=== PATIENT | male | born 1950 | race Caucasian/White ===

== ENCOUNTER 2025-01-17 07:28 | Inpatient (IN) | payer MEDICAID, SELFPAY ==
[2025-01-17] VITALS (8 sets, daily range): BP systolic 132–178; BP diastolic 73–89; PULSE 61–68; RESP 16–20; TEMP 36.2–37.1; O2SAT 95–100; BMI 28.9
--- NOTE | 2025-01-17 07:50 | XR_ITS ---
Examination: PA lateral chest 2 views TECHNIQUE: Upright PA lateral chest 2 views Date and time: January 17, 2025, 0756 hours Comparison January 09, 2022 INDICATIONS: Chest pain and arm swelling today. FINDINGS: Moderate CHF Mild enlargement cardiac contour. Prominent vascular congestion with perihilar basilar edema Consider superimposed pneumonia at the lung bases Moderate hyperexpansion Cardiac leads satisfactory position IMPRESSION: Moderate CHF Consider superimposed pneumonia at the lung bases
--- NOTE | 2025-01-17 07:50 | EKG_ITS ---
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
--- NOTE | 2025-01-17 07:51 | PD.EDRME ---
Rapid Medical Screening Exam RME Arrival date/time: 01/17/25 07:28 74-year-old male with a history of hypertension, hyperlipidemia, type 2 diabetes presents to the emergency room with a chief complaint of increased shortness of breath, fatigue, bilateral lower extremity swelling x 1 week I have greeted and performed a focused initial assessment of this patient. A comprehensive ED assessment and evaluation of the patient, analysis of all test results, and completion of the medical decision making process will be conducted by additional ED providers. Chief Complaint: Shortness of Breath/Dyspnea Vital signs: Vital Signs Temperature 98.8 F 01/17/25 07:40 Pulse Rate 67 01/17/25 07:40 Respiratory Rate 18 01/17/25 07:40 Blood Pressure 178/83 H 01/17/25 07:40 Pulse Oximetry (%) 97 01/17/25 07:40 Oxygen Delivery Method Room Air 01/17/25 07:40 Vital signs reviewed by provider: Yes
[2025-01-17 08:21] LABS: Basophils # (Auto) 0.0 Thou/mm3 (0.0-0.2); Basophils % (Auto) 0 % (0-2.5); Eosinophils # (Auto) 0.1 Thou/mm3 (0.0-0.5); Eosinophils % (Auto) 1 % (0-10); Hematocrit 34.2 % (41.0-53.0); Hemoglobin 11.3 g/dL (13.5-16.0); Immature Granulocytes Auto 0.02 Thou/mm3 (0.00-0.00); Lymphocytes # (Auto) 3.4 Thou/mm3 (1.0-4.8); Lymphocytes % (Auto) 30 % (10-50); Mean Corpuscular HGB Conc 33.0 g/dl (31.0-37.0); Mean Corpuscular Hemoglobin 31.7 pg (25.0-35.0); Mean Corpuscular Volume 96 fL (80-100); Monocytes # (Auto) 0.8 Thou/mm3 (0.0-0.8); Monocytes % (Auto) 7 % (0-12); Neutrophils # (Auto) 7.1 Thou/mm3 (1.8-7.7); Neutrophils % (Auto) 62 % (37-80); Nucleated Red Blood Cell # 0.00 Thou/mm3 (0.00-0.00); Nucleated Red Blood Cell % 0 /100 WBC (0); Platelet Count 280 Thou/mm3 (140-440); RDW Standard Deviation 56.5 fL (35.1-43.9); Red Blood Count 3.56 Miln/mm3 (4.50-5.90); White Blood Count 11.4 Thou/mm3 (3.8-10.6)
[2025-01-17 08:37] LABS: Alanine Aminotransferase 46 U/L (10-49); Albumin, Serum 3.9 gm/dL (3.4-4.8); Albumin/Globulin Ratio 1.6 (1.2-2.2); Alkaline Phosphatase 102 U/L (46-116); Anion Gap 6 (7-16); Aspartate Amino Transferase 57 U/L (0-34); BUN/Creatinine Ratio 8 Ratio (12-20); Bilirubin,Total 0.3 mg/dL (0.3-1.2); Blood Urea Nitrogen 6 mg/dL (9-23); Calcium 8.4 mg/dL (8.3-10.6); Calcium (Corrected) 8.5 mg/dL (8.5-10.1); Carbon Dioxide 24.8 mMol/L (20.0-31.0); Chloride 112 mMol/L (98-107); Creatinine (Component) 0.8 mg/dL (0.6-1.3); Estimated Creatinine Clearance 69.3 mL/min (>60); Globulin 2.4 gm/dL (2.3-3.5); Glucose 62 mg/dL (74-106); Osmolality,Calculated 280 (275-295); Potassium 4.3 mMol/L (3.4-5.1); Sodium 143 mMol/L (136-145); Total Protein 6.3 gm/dL (5.7-8.2); Troponin I 0.024 ng/mL (0.0-0.045); eGFR > 60 See Note
[2025-01-17 08:45] LABS: Bilirubin,Urine Negative (Negative); Blood,Urine Negative (Negative); Clarity,Urine Clear (Clear/Hazy); Collection Type, Urine Clean Catch; Color,Urine Colorless (Lt Yel-Yel); Glucose, Urine Negative (Negative); Ketones,Urine Negative (Negative); Leukocyte Esterase,Urine Negative (Negative); Nitrite,Urine Negative (Negative); PH,Urine 6.0 (5.0-7.0); Protein,Urine Negative (Neg - Trace); RBC,Urine 2 /hpf (0-3); Specific Gravity,Urine 1.012 (1.001-1.035); Squamous Epithelial Cell,Urine 0 /hpf (0-5); Urobilinogen,Urine Negative mg/dL (0.0-1.0); WBC,Urine 1 /hpf (0-5)
[2025-01-17 08:50] LABS: B-Type Natriuretic Peptide 760 pg/mL (0-100)
[2025-01-17 10:18] LABS: INR 0.9 (0.9-1.3); Partial Thromboplastin Time 25.8 Seconds (22.0-36.0); Prothrombin Time 10.2 Seconds (9.0-12.2)
--- NOTE | 2025-01-17 13:35 | XR_ITS ---
Examination: Duplex scan of the upper extremity, unilateral left Date and time of exam: January 17, 2025 1445 hours INDICATIONS: Onset left arm swelling today Technique: Duplex scan of the extremity veins using B-mode/grayscale imaging and Doppler spectral analysis and color flow Attention is directed to internal echogenicity, compression and augmentation involving these veins, color flow assessment, spectral analysis Findings: Major deep venous structures in the extremity demonstrate normal course and caliber. There is no evidence of deep vein thrombosis. Normal color flow and spectral analysis Impression: Negative for DVT..
[2025-01-17] MEDS: ALBUTEROL/IPRATROPIUM (Duoneb) RT SOL 3 ML NEBU INH (13:47)
--- NOTE | 2025-01-17 15:30 | PD.EDSOB ---
ED SOB =RME/HPI General Chief Complaint: Shortness of Breath/Dyspnea Stated Complaint: SOB, SWELLING IN EXTREMITIES, FEELS AGITATED Time Seen by Provider: 01/17/25 18:13 Arrival date/time: 01/17/25 07:28 RME / HPI RME / HPI Narrative: 01/17/25 07:28 74-year-old male with a history of hypertension, hyperlipidemia, type 2 diabetes presents to the emergency room with a chief complaint of increased shortness of breath, fatigue, bilateral lower extremity swelling x 1 week I have greeted and performed a focused initial assessment of this patient. A comprehensive ED assessment and evaluation of the patient, analysis of all test results, and completion of the medical decision making process will be conducted by additional ED providers. DR. SCHMID MAIN ED EVALUATION 74 year old male with history of pacemaker placement, hypertension, diabetes, and hyperlipidemia presents to the ED with progressively worsening shortness of breath over the past month, with exacerbation over the past week. Worse with exertion. Associated symptoms include productive cough with white phlegm and bilateral lower extremity swelling. Denies chest pain, fever, chills, night sweats, nausea, vomiting, diarrhea, or constipation. Denies dysuria, urinary frequency, or urgency. He is not currently taking any diuretics. Related Data Home Medications ?Medication ?Instructions ?Recorded ?Confirmed empagliflozin 25 mg tablet 25 mg PO QDAY 10/13/21 01/18/25 (Jardiance) sitagliptin phosphate 50 1 tab PO BID 10/13/21 01/18/25 mg-metformin 1,000 mg tablet (Janumet) Previous Rx's ?Medication ?Instructions ?Recorded atorvastatin 20 mg tablet 40 mg (2 x 20 mg) PO HS 30 days 01/19/25 #60 tabs blood-glucose sensor (FreeStyle #3 ea 01/19/25 Camila 3 Plus Sensor device) blood-glucose,data warehouse architect,cont #2 ea 01/19/25 (FreeStyle Camila 3 [place]) furosemide 20 mg tablet (Lasix) 20 mg PO QAM Heart Failure 30 01/19/25 days #30 tabs losartan 25 mg tablet 25 mg PO QDAY blood pressure 30 01/19/25 days #30 tabs Allergies Allergy/AdvReac Type Severity Reaction Status Date / Time No Known Allergies Allergy Verified 01/17/25 07:35 Review of Systems Review of Systems Systems Reviewed: All systems reviewed, normal except as documented Past Medical History Past Medical History CARDIAC: Positive Hypercholesterolemia and Hypertension ENDOCRINE: Positive Diabetes Mellitus Type 2 Surgical History SURGICAL: Negative Cardiac Surgery, Endocrine Surgery, Ear Surgery, Abdominal Surgery, Nephrectomy, Joint Replacement, Neurologic Surgery, Mastectomy or Vasectomy Social History SMOKING STATUS: Never smoker SUBSTANCE USE: does not use ED Exam Narrative Physical exam: GENERAL APPEARANCE: alert and oriented x 4, well-developed, well-nourished, no acute distress HEENT: Normocephalic, atraumatic; pupils equal, round, reactive to light; EOMI; mucous membranes pink, moist; oropharynx clear NECK: Supple LUNGS: Wheezes, no rales, no rhonchi HEART: Regular rate, regular rhythm; normal S1, S2; no murmurs ABDOMEN: non distended; normal BS; soft, no tenderness, no guarding, no rebound; no masses, no organomegaly, no hernia BACK: no CVA tenderness EXTREMITIES: atraumatic; BLE edema NEUROLOGIC: awake; alert and oriented x4; cranial nerves II-XII grossly intact; no focal sensory or motor deficits PSYCHIATRIC: appropriate mood and affect SKIN: warm, dry, normal color; no rashes Course Quality Measures none Orders Category Date Time Status COVID-19 Screening Questionnaire NOW Care 01/17/25 19:44 Completed Depositing Machine Operator Q4H START 00 Care 01/17/25 18:49 Completed Decision to Admit X1 Care 01/17/25 19:43 Completed EKG (ED ONLY) *Do not use* NOW Care 01/17/25 07:50 Completed Consult to Cardiology Stat Cons 01/17/25 20:00 Ordered EKG (ED Only) Stat Exams 01/17/25 07:50 Draft US venous doppler UE LT Stat Exams 01/17/25 13:35 Completed XR chest 2V Stat Exams 01/17/25 07:50 Completed B-Type Natriuretic Peptide Stat Lab 01/17/25 08:09 Completed CBC Stat Lab 01/17/25 08:09 Completed Comprehensive Metabolic Panel Stat Lab 01/17/25 08:09 Completed Partial Thromboplastin Time Stat Lab 01/17/25 08:09 Completed Prothrombin Time with INR Stat Lab 01/17/25 08:09 Completed Troponin I Stat Lab 01/17/25 08:09 Completed Urinalysis Stat Lab 01/17/25 08:20 Completed Albuterol/Ipratr Rt Lola [Duoneb Rt Lola] Med 01/17/25 13:35 Discontinued 3 ml INH X1 ONE Dextrose 50% Syr [D50w Syringe Abboject] Med 01/17/25 18:22 Discontinued 50 ml .ROUTE .STK-MED ONE Dextrose 50% Syr [D50w Syringe Abboject] Med 01/17/25 18:33 Discontinued 50 ml IVP X1 ONE Furosemide [Lasix] Med 01/17/25 13:35 Discontinued 40 mg PO X1 ONE Vital Signs Vital signs: Vital Signs Temperature 98.8 F 01/17/25 07:40 Pulse Rate 67 01/17/25 07:40 Respiratory Rate 18 01/17/25 07:40 Blood Pressure 178/83 H 01/17/25 07:40 Pulse Oximetry (%) 97 01/17/25 07:40 Oxygen Delivery Method Room Air 01/17/25 07:40 Pulse ox is 97% on room air which is adequate. Shortness of Breath / Dyspnea MDM Narrative MDM Narrative:: Yael Jansen am scribing for and in the presence of Dr. Schmid. 1800: Patient signed out to Dr. Lyon, pending sales support assistant Dr. Valdez to evaluate in the ED. Patient data External records reviewed:: [facility] previous records (I reviewed ED visit on 01/09/2022 ) Clinical information provided by:: patient Social determinants that could affect healthcare access:: none Patient has the following chronic illnesses:: HTN, DM, HLD, s/p pacemaker placement How is presenting disease/condition affected by chronic disease/condition?: exacerbated by Evaluation data The following diagnostics were reviewed and interpreted by me:: lab results, radiology exam(s) and EKG tracing(s) (Paced rhythm, rate 64, no STEMI. ) Lab and/or radiology exams considered but not ordered:: None Interpretation Summary: Ordering Physician: Leonel Howe Date of Service: 01/17/25 Procedure(s): XR chest 2V Accession Number(s): [id number] cc: Leonel Howe; Taylor Neil MD; Ramez Back MD~ Examination: PA lateral chest 2 views TECHNIQUE: Upright PA lateral chest 2 views Date and time: January 17, 2025, 0756 hours Comparison January 09, 2022 INDICATIONS: Chest pain and arm swelling today. FINDINGS: Moderate CHF Mild enlargement cardiac contour. Prominent vascular congestion with perihilar basilar edema Consider superimposed pneumonia at the lung bases Moderate hyperexpansion Cardiac leads satisfactory position IMPRESSION: Moderate CHF Consider superimposed pneumonia at the lung bases Dictated By: Ramez Back MD Signed By: <Electronically signed by Ramez Back MD in OV> 01/17/25 0927 Ordering Physician: Dionne Schmid MD Date of Service: 01/17/25 Procedure(s): US venous doppler UE Accession Number(s): [id number] cc: Taylor Neil MD; Ramez Back MD; Dionne Schmid MD~ Examination: Duplex scan of the upper extremity, unilateral left Date and time of exam: January 17, 2025 1445 hours INDICATIONS: Onset left arm swelling today Technique: Duplex scan of the extremity veins using B-mode/grayscale imaging and Doppler spectral analysis and color flow Attention is directed to internal echogenicity, compression and augmentation involving these veins, color flow assessment, spectral analysis Findings: Major deep venous structures in the extremity demonstrate normal course and caliber. There is no evidence of deep vein thrombosis. Normal color flow and spectral analysis Impression: Negative for DVT.. Dictated By: Ramez Back MD Signed By: <Electronically signed by Ramez Back MD in OV> 01/17/25 1521 Medications / Prescriptions Medications or Prescriptions considered but not ordered:: None Medication administrations:: Medication Administration History Discontinued Medications Acetaminophen (Acetaminophen 325 Mg Tablet) 650 mg PO Q6H PRN PRN Reason: Pain 1-3 and/or Fever >100.1 Stop: 02/16/25 20:54 Last Admin: 01/18/25 21:51 Dose: 650 mg Documented By: NADYA Albuterol/Ipratropium (Albuterol/Ipratropium (Duoneb) Rt Lola 3 Ml Nebu) 3 ml INH X1 ONE Stop: 01/17/25 13:36 Last Admin: 01/17/25 13:47 Dose: 3 ml Documented By: LUIS Atorvastatin Calcium (Atorvastatin Calcium 20 Mg Tablet) 40 mg PO HS [facility] Stop: 02/17/25 20:59 Last Admin: 01/18/25 21:51 Dose: 40 mg Documented By: NADYA Dextrose (Dextrose 50%-Water Inj 50 Ml Syringe) Confirm Administered Dose 50 ml .ROUTE .STK-MED ONE Stop: 01/17/25 18:23 Last Admin: 01/17/25 18:34 Dose: Not Given Documented By: EVA Non-Admin Reason: Duplicate Medication on eMAR Dextrose (Dextrose 50%-Water Inj 50 Ml Syringe) 50 ml IVP X1 ONE Stop: 01/17/25 18:34 Last Admin: 01/17/25 18:30 Dose: 50 ml Documented By: EVA Dextrose (Dextrose 50%-Water Inj 50 Ml Syringe) 25 ml IV Q15MIN PRN PRN Reason: BG 50-70 responsive npo pt Stop: 02/16/25 23:19 Dextrose (Dextrose 50%-Water Inj 50 Ml Syringe) 50 ml IV Q15MIN PRN PRN Reason: BG <50 OR BG <70 & pt unresponsive Stop: 02/16/25 23:19 Furosemide (Furosemide 40 Mg Tablet) 40 mg PO X1 ONE Stop: 01/17/25 13:36 Last Admin: 01/17/25 13:47 Dose: 40 mg Documented By: KARENA Furosemide (Furosemide Inj 10 Mg/Ml 4ml Vial) 40 mg IVP BIDD TINO Stop: 02/17/25 05:59 Last Admin: 01/18/25 05:26 Dose: 40 mg Documented By: NADYA Furosemide (Furosemide Inj 10 Mg/Ml 4ml Vial) 40 mg IVP QDAY TINO Stop: 02/18/25 08:59 Last Admin: 01/19/25 08:49 Dose: 40 mg Documented By: ZOILA Glucagon (Glucagon Inj 1 Mg Vial) 1 mg IM Q15MIN PRN PRN Reason: BG <70, and no IV access Heparin Sodium (Porcine) (Heparin Sod Inj 5000 Unit/Ml Vial) 5,000 unit SC Q12HR TINO Stop: 01/31/25 20:59 Last Admin: 01/19/25 08:48 Dose: 5,000 unit Documented By: ZOILA Co-signed By: KANU Admin: 01/18/25 21:51 Dose: 5,000 unit Documented By: NADYA Co-signed By: SABINO Admin: 01/18/25 09:41 Dose: 5,000 unit Documented By: ZOILA Co-signed By: KF Admin: 01/17/25 21:26 Dose: 5,000 unit Documented By: KARENA Co-signed By: BRIAN Ceftriaxone Sodium/Dextrose (Rocephin/D5w 1gm Iv Premix) 1 gm in 50 mls @ 100 mls/hr IV QDAY TINO Stop: 01/24/25 23:26 Last Admin: 01/19/25 08:48 Dose: 100 mls/hr Documented By: Infusion: 01/18/25 10:09 Dose: Infused Documented By: Admin: 01/18/25 09:39 Dose: 100 mls/hr Documented By: Infusion: 01/18/25 00:49 Dose: Infused Documented By: Admin: 01/18/25 00:19 Dose: 100 mls/hr Documented By: NADYA Azithromycin 500 mg/ Sodium (Chloride) 250 mls @ 250 mls/hr IV QDAY TINO Stop: 01/25/25 10:20 Last Admin: 01/19/25 09:24 Dose: 250 mls/hr Documented By: Infusion: 01/18/25 12:03 Dose: Infused Documented By: Admin: 01/18/25 11:03 Dose: 250 mls/hr Documented By: ZOILA Insulin Glargine (Insulin Glargine (Lantus) 5 Unit/0.05 Ml (Per 5 Units)) 5 unit SC HS TINO Stop: 02/17/25 20:59 Insulin Glargine (Insulin Glargine (Lantus) 5 Unit/0.05 Ml (Per 5 Units)) 5 unit SC HS TINO Stop: 02/17/25 20:59 Last Admin: 01/18/25 21:53 Dose: 5 unit Documented By: NADYA Co-signed By: SABINO Insulin Human Lispro (Insulin Lispro (Admelog) 1 Unit/0.01 Ml Unit) 0 unit SC ACHS TINO; Protocol Stop: 02/17/25 07:29 Last Admin: 01/19/25 12:00 Dose: 1 unit Documented By: ZOILA Co-signed By: DL Admin: 01/19/25 07:34 Dose: Not Given Documented By: ZOILA Non-Admin Reason: Per Protocol Admin: 01/18/25 21:52 Dose: Not Given Documented By: SS Non-Admin Reason: blood glucose 129 Admin: 01/18/25 17:35 Dose: Not Given Documented By: ZOILA Non-Admin Reason: Per Protocol Admin: 01/18/25 13:27 Dose: Not Given Documented By: ZOILA Non-Admin Reason: Per Protocol Admin: 01/18/25 08:13 Dose: 2 unit Documented By: OZILA Co-signed By: MGSona Ondansetron HCl (Ondansetron Inj 2 Mg/Ml Inj 2 Ml) 4 mg IVP Q6H PRN; Protocol PRN Reason: NAUSEA OR VOMITING Stop: 02/16/25 20:54 Polyethylene Glycol (Polyethylene Glycol 17 Gm Packet) 17 gm PO QDAY TINO Stop: 02/18/25 08:59 Last Admin: 01/19/25 08:49 Dose: 17 gm Documented By: ZOILA Potassium Chloride (Potassium Chloride 20 Meq Tabcr) 20 meq PO X1 ONE Stop: 01/18/25 18:01 Last Admin: 01/18/25 17:36 Dose: 20 meq Documented By: ZOILA Sennosides (Senna Tablet) 1 tab PO QDAY PRN; Protocol PRN Reason: constipation Stop: 02/16/25 20:54 See above Consultations Consultation(s) initiated? (list below): Yes Consultation #1 (Physician, Specialty, Details): I spoke with sales support assistant Dr. Valdez. Discussed patients PMHx, HPI, ED course, exam findings, labs, and radiology results. States he will evaluate the patient in the ED. Time: 17:25 Diagnosis Shortness of Breath Differential Diagnosis: acute exacerbation of chronic obstructive airways disease, congestive heart failure, community acquired pneumonia and other (DVT ) Most likely diagnosis given after review of the tests above:: New onset CHF Admission Indicated Admission indicated?: not indicated Explain why admission is indicated or not indicated:: Signed out to Dr. Lyon pending final disposition. Admission Request Was there a request for admission?: No Disposition Plan Disposition Plan: other (specify) (signed out to Dr. Lyon pending final disposition. ) Discharge Plan Plan Patient Disposition: Admit Acute Care w/in Hospital Discharge Disposition comment: TELE Patient condition on transfer: Stable Problem List Clinical Impression: CHF exacerbation
--- NOTE | 2025-01-17 18:20 | PC.NURSE ---
Patient c/o feeling dizzy, states he hasn't eaten all day, VSS. FSBS 37 repeat 38, patient denies n/vomiting, alert and oriented x 3, at bedside, patient provided with 240ml orange juice and followed critical low blood sugar lever, Dr. Machado made aware and states do not feed patient meal at this time, do to patient awaiting consult with cardiologists
[2025-01-17] MEDS: DEXTROSE 50%-WATER INJ 50 ML SYRINGE IVP (18:30)
--- NOTE | 2025-01-17 19:40 | EDNOTE_ITS ---
Emergency Room Addendum <Taylor Lyon MD - Last Filed: 01/17/25 19:42> Addendum Narrative: Signed out from Dr. Bindu heard at signout. Pending evaluation by DR Brush for final disposition. 1941: Dr. Brush at the bedside. Recommends admission, IV diuresis echo tomorrow, Lasix 40 mg IV twice daily, and ischemic workup <Adrián Cárdenas - Last Filed: 01/17/25 21:25> Addendum Narrative: 1800: Care assumed from Dr. Schmid (emergency physician). Past medical, surgical, social and family history reviewed. Vitals and home medications reviewed. Results and treatment plan discussed. I will assume the care of the patient at this time and will follow the patient, pending evaluation by Dr. Brush for final disposition. 1941: Dr. Brush, bit gatherer wood preparation supervisor, was made aware of the patient?s history of present illness, past medical history, laboratory results, and imaging findings. Dr. Brush evaluated the patient in-person at bedside and reviewed the case in detail. After consultation, Dr. Brush discussed the treatment plan. He recommends: Admission, IV diuresis echo tomorrow, Lasix 40 mg IV twice daily, and ischemic workup. MD Attestation <Adrián Cárdenas - Last Filed: 01/17/25 21:25> Attestation Scribe Attestation: I, Alma Cárdenas, am scribing for and in the presence of Dr. Lyon. Provider Notation: Although this document has been carefully reviewed, there may still be some phonetic and other typographical errors. These errors are purely grammatical due to imperfections in the software program and should not be construed in any way to compromise the substance of the patient's medical care during this visit.
--- NOTE | 2025-01-17 20:11 | PD.RESHP ---
Documentation for date of: 01/17/25 HPI History of Present Illness Chief complaint: Shortness of breath, dyspnea on exertion History of present illness: 74-year-old male with past medical history of hypertension, hyperlipidemia, lel-hbdqioi-iddbaqskx type 2 diabetes, pacemaker for bradycardia followed by Dr. Valdez presenting to the ED on 01/17 with increased episode of shortness of breath and dyspnea on exertion. Patient states that after showering last night he started noticing that he was retaining fluid in his hands and lower extremities. Patient follows with Dr. Valdez as stated above and has his pacemaker card on his person. Patient denies having any fever/chills, palpitations, dizziness, nausea, vomiting, diarrhea. Patient's bedside also provided some history collaborating his story. Medical history: As stated above Surgical history: Pacemaker placement Allergies: NKDA Medications: Pending official med rec Family history: Noncontributory Social history: Patient lives with , denies having any alcohol, tobacco or illicit drug use ROS: All 12 systems assessed and the patient denies unless otherwise stated in HPI In the ED, patient presented hypertensive 178/83, heart rate is 67, remaining vitals largely unremarkable, fingerstick Leukos of 161, pertinent lab findings include WBC 11.4, hemoglobin 11.3 with MCV of 96, BUN 6, creatinine 0.8, AST mildly elevated 57, ALT also at 46, troponin 0.024 and BNP of 760. Urinalysis was negative for any signs of infection. Chest x-ray showed mild to moderate CHF with enlarged cardiac contour and likely superimposed pneumonia in the lung bases, EKG showed atrial pacemaker, ventricular pacemaker. Venous Doppler studies were ordered which showed no signs of DVT. Patient will be admitted for CHF exacerbation and will be started on IV diuretics, cardiology is consulted for recommendations. Exam Vital Signs Temp Pulse Resp BP Pulse Ox O2 Del Method 97.4 F 64 16 148/73 H 100 Room Air 01/17/25 16:18 01/17/25 18:50 01/17/25 18:20 01/17/25 18:20 01/17/25 18:20 01/17/25 18:20 Narrative Exam Physical Exam: GENERAL: Awake, answering questions appropriately in Ukrainian, appears stated age HEENT: NC/AT. Moist mucosa. PERRLA/EOMI. CARDIO: Paced rhythm, distant heart sounds, no JVD appreciated PULM: Bilateral wheezing noted, no crackles/rales or rhonchi. GI: Abdomen soft, NT/ND, +BS. SKIN/MSK/EXT: Nonpitting edema noted on bilateral upper and lower extremities up to feet. No wounds/discoloration/rashes/amputations noted. +Pedal pulses present B/L. NEURO: Oriented x3, Moves extremities x4, no focal neurologic deficits noted Results: Labs 01/17/25 08:09 01/17/25 08:09 Labs: Short CBC 01/17/25 Range/Units 08:09 WBC 11.4 H (3.8-10.6) Thou/mm3 Hgb 11.3 L (13.5-16.0) g/dL Hct 34.2 L (41.0-53.0) % Plt Count 280 (140-440) Thou/mm3 BMP 01/17/25 08:09 Sodium 143 Potassium 4.3 Chloride 112 H Carbon Dioxide 24.8 BUN 6 L Creatinine 0.8 Glucose 62 L Calcium 8.4 Cardiac Enzymes 01/17/25 Range/Units 08:09 Troponin I 0.024 (0.0-0.045) ng/mL Liver Function 01/17/25 Range/Units 08:09 Total Bilirubin 0.3 (0.3-1.2) mg/dL AST 57 H (0-34) U/L ALT 46 (10-49) U/L Alkaline Phosphatase 102 (46-116) U/L Albumin 3.9 (3.4-4.8) gm/dL Urine 01/17/25 Range/Units 08:20 Urine Color Colorless A (Lt Yel-Yel) Urine Clarity Clear (Clear/Hazy) Urine pH 6.0 (5.0-7.0) Ur Specific [place] 1.012 (1.001-1.035) Urine Protein Negative (Neg - Trace) Urine Glucose (UA) Negative (Negative) Quality Measures Quality Measures none Advance care planning discussed with:: patient Medications Home Medications and Allergies Home Medications ?Medication ?Instructions ?Recorded ?Confirmed ?Type atorvastatin 20 mg tablet 20 mg PO QDAY 09/08/18 11/28/21 History amlodipine 5 mg tablet 5 mg PO QAM 10/13/21 11/28/21 History empagliflozin 25 mg tablet 25 mg PO QDAY 10/13/21 11/28/21 History (Jardiance) losartan 25 mg tablet 25 mg PO QDAY 10/13/21 11/28/21 History sitagliptin phosphate 50 1 tab PO BID 10/13/21 11/28/21 History mg-metformin 1,000 mg tablet (Janumet) Allergies Allergy/AdvReac Type Severity Reaction Status Date / Time No Known Allergies Allergy Verified 01/17/25 07:35 Visit Medications Discontinued Medications Albuterol/Ipratropium (Albuterol/Ipratropium (Duoneb) Rt Lola 3 Ml Nebu) 3 ml INH X1 ONE Stop: 01/17/25 13:36 Last Admin: 01/17/25 13:47 Dose: 3 ml Dextrose (Dextrose 50%-Water Inj 50 Ml Syringe) 50 ml IVP X1 ONE Stop: 01/17/25 18:34 Last Admin: 01/17/25 18:30 Dose: 50 ml Furosemide (Furosemide 40 Mg Tablet) 40 mg PO X1 ONE Stop: 01/17/25 13:36 Last Admin: 01/17/25 13:47 Dose: 40 mg Assessment & Plan Plan 74-year-old male with past medical history of hypertension, hyperlipidemia, miz-vpmycva-ixwteggqz type 2 diabetes, pacemaker for bradycardia followed by Dr. Valdez presenting to the ED on 01/17 with increased episode of shortness of breath and dyspnea on exertion will be admitted for CHF exacerbation and will be started on IV diuretics, cardiology is consulted for recommendations. #CHF, [place] Heart [employer] stage IV #Pacemaker placement Patient presenting with symptomatic dyspnea on exertion, shortness of breath which was accompanied by upper and lower extremity swelling In the ED, patient presented initially mildly hypertensive requiring no supplemental oxygen saturating well Pertinent lab findings included BNP of 760 but troponin was within normal limits Patient follows Dr. Valdez outpatient for pacemaker placement and cardiology follow-up In the ED, patient was given p.o. furosemide 40 x 1 along with a breathing treatment for the wheezing Plan: IV Lasix 40 mg twice daily Cardiology consulted, appreciate recommendations Strict I's and O's Daily weight Echo ordered Possible further workup with left heart catheterization pending cardiology recommendations #Superimposed community-acquired pneumonia Chest x-ray showed mild to moderate CHF with enlarged cardiac contour and likely superimposed pneumonia in the lung bases, EKG showed atrial pacemaker, ventricular pacemaker. Venous Doppler studies were ordered which showed no signs of DVT. Plan: Started IV ceftriaxone 1 g daily Monitor with morning labs Patient does not appear septic at this time, continue monitor for any acute changes #Hypertension #Lqq-fcvkrcq-vncwykuzp type 2 diabetes #Hyperlipidemia Chronic medical conditions, pending official med rec will restart home medications Plan: Sliding scale insulin ACHS bedside glucose Will restart patient's antihypertensive when appropriate #Elevated liver enzymes Differentials include NAFLD congestion secondary CHF versus less likely to be alcohol associated hepatitis, viral hepatitis Plan: Continue monitor with morning labs Health Maintenance: Lines: PIV Diet: Cardiac Bowel: Senna GI prophylaxis: Not needed DVT prophylaxis: Heparin subcu Dispo: IV diuretics per CHF exacerbation, cardiac workup Code: Full Patient seen and examined with attending Dr. Florencia Lopez, DO PGY-2 Internal Medicine - GME Attending Provider Attestation/Addendum 74-year-old male patient with hypertension, hyperlipidemia, diabetes mellitus presents with shortness of breath. The patient was found to have decompensated CHF. Chest x-ray showed pneumonia and pulmonary congestion. The patient has elevated liver function tests. The patient was started on IV diuretic treatment and IV Rocephin. He will be followed by his tip fixer Dr. Valdez. I discussed with and supervised the resident physician who took care of this patient. I agree with the assessment and plan as above.
[2025-01-17] MEDS: HEPARIN SOD INJ 5000 UNIT/ML VIAL SC (21:26)
[2025-01-18] VITALS (8 sets, daily range): BP systolic 107–165; BP diastolic 71–88; PULSE 62–82; RESP 12–19; TEMP 36.3–36.8; O2SAT 98–99; BMI 28.9; BMI 29.0
[2025-01-18] MEDS: cefTRIAXone/D5w 1gm IV premix 1 GM/50 ML BAG IV ×2 (00:19→09:39)
[2025-01-18] MEDS: FUROSEMIDE INJ 10 MG/ML 4ML VIAL 40 MG IVP (05:26)
[2025-01-18 05:57] LABS: Basophils # (Auto) 0.0 Thou/mm3 (0.0-0.2); Basophils % (Auto) 0 % (0-2.5); Eosinophils # (Auto) 0.1 Thou/mm3 (0.0-0.5); Eosinophils % (Auto) 1 % (0-10); Hematocrit 37.6 % (41.0-53.0); Hemoglobin 12.3 g/dL (13.5-16.0); Immature Granulocytes Auto 0.01 Thou/mm3 (0.00-0.00); Lymphocytes # (Auto) 2.0 Thou/mm3 (1.0-4.8); Lymphocytes % (Auto) 23 % (10-50); Mean Corpuscular HGB Conc 32.7 g/dl (31.0-37.0); Mean Corpuscular Hemoglobin 31.4 pg (25.0-35.0); Mean Corpuscular Volume 96 fL (80-100); Monocytes # (Auto) 0.7 Thou/mm3 (0.0-0.8); Monocytes % (Auto) 7 % (0-12); Neutrophils # (Auto) 6.1 Thou/mm3 (1.8-7.7); Neutrophils % (Auto) 69 % (37-80); Nucleated Red Blood Cell # 0.00 Thou/mm3 (0.00-0.00); Nucleated Red Blood Cell % 0 /100 WBC (0); Platelet Count 173 Thou/mm3 (140-440); RDW Standard Deviation 54.0 fL (35.1-43.9); Red Blood Count 3.92 Miln/mm3 (4.50-5.90); White Blood Count 8.9 Thou/mm3 (3.8-10.6)
[2025-01-18 06:14] LABS: Glucose Estimated Average 318 mg/dL (80-131); Hemoglobin A1C 12.7 % Hgb (4.8-6.0)
[2025-01-18 06:23] LABS: Alanine Aminotransferase 40 U/L (10-49); Albumin, Serum 3.7 gm/dL (3.4-4.8); Albumin/Globulin Ratio 1.5 (1.2-2.2); Alkaline Phosphatase 106 U/L (46-116); Anion Gap 5 (7-16); Aspartate Amino Transferase 40 U/L (0-34); BUN/Creatinine Ratio 7 Ratio (12-20); Bilirubin,Total 0.5 mg/dL (0.3-1.2); Blood Urea Nitrogen < 5 mg/dL (9-23); Calcium 8.7 mg/dL (8.3-10.6); Calcium (Corrected) 8.9 mg/dL (8.5-10.1); Carbon Dioxide 29.6 mMol/L (20.0-31.0); Cardiac Risk Estimate 2.3 RATIO (4.0-6.7); Chloride 106 mMol/L (98-107); Cholesterol 158 mg/dL (132-200); Creatinine (Component) 0.7 mg/dL (0.6-1.3); Estimated Creatinine Clearance 79.2 mL/min (>60); Globulin 2.4 gm/dL (2.3-3.5); Glucose 52 mg/dL (74-106); HDL Cholesterol 70 mg/dL (40-60); LDL Cholesterol,Calculated 73 mg/dL (0-130); Magnesium 1.7 mg/dL (1.6-2.6); Osmolality,Calculated 275 (275-295); Phosphorous 4.6 mg/dL (2.4-5.1); Potassium 3.7 mMol/L (3.4-5.1); Sodium 141 mMol/L (136-145); Thyroid Stimulating Hormone 5.37 uIU/mL (0.55-4.78); Total Protein 6.1 gm/dL (5.7-8.2); Triglycerides 75 mg/dL (30-150); eGFR > 60 See Note
[2025-01-18] MEDS: INSULIN LISPRO (AdmeLOG) 1 UNIT/0.01 ML UNIT SC (08:13)
[2025-01-18 08:20] LABS: Free T4 (Free Thyroxine) 1.29 ng/dL (0.89-1.76)
[2025-01-18] MEDS: HEPARIN SOD INJ 5000 UNIT/ML VIAL SC ×2 (09:41→21:51)
[2025-01-18] MEDS: AZITHROMYCIN INJ 500 MG in SODIUM CHLORIDE 0.9% 250 ML 250 ML 250 MG IV (11:03)
--- NOTE | 2025-01-18 11:48 | PC.SS ---
SS met with patient regarding d/c plan.? Pt is alert/oriented.? Pt was admitted for CHF Exacerbation.? Pt confirmed demographic and contact information is correct on facesheet.? Pt resides with .? Pt ambulates using a 4 wheel with seat, rollator walker.? Pt is ok with all ADLs.? Patient?s pharmacy of choice is [facility] [address] Pt named his dtr, Eboni Morris medical decision maker if he is unable.? Patient?s choice is to return home upon d/c.? Pt does not utilize O2 at home.? Pt is currently on 1 liter of O2.? Pt followed up with PCP in December.? will provide transportation home. D/C plan:? Return home Next of Kin:? ?ursula Parisr, phone# [phone] PCP:? Dr. Taylor Neil from [facility] Address:? Correct on facesheet
--- NOTE | 2025-01-18 12:00 | PD.RESPRO ---
Documentation for date of: 01/18/25 Subjective Subjective Interval history: Patient continued to endorse dyspnea on exertion. Patient continued to deny chest pain or palpitations. Patient stated that he went to the bathroom multiple times throughout the night after being started on diuretics. Decreased Lasix IV 40 mg BID to 40 mg IV QD. Patient produced 4575 mL output of urine. Echo with Dr. Valdez completed. Results pending. Previous echo with Dr. Valdez completed 08/2018 estimated EF between 50-55%. Sodium 2g per day, cardiology rec Exam Vital Signs Temp Pulse Resp BP Pulse Ox O2 Del Method O2 Flow Rate 97.4 F 69 17 124/83 99 Nasal Cannula 1 01/18/25 08:00 01/18/25 08:00 01/18/25 08:00 01/18/25 08:00 01/18/25 08:00 01/18/25 08:00 01/18/25 08:00 Narrative Exam General Appearance: Alert & Oriented X3, well-nourished male who is lying in bed in no acute distress. HEENT: Skull symmetrical and atraumatic. Conjunctivae pin and moist. Pupils equal, round, reactive to light and accommodation (PERRL). External ear without lesion or discharge. Straight, nares patient, mucosa pink, no discharge. No thyroid nodule appreciated. No cervical lymphadenopathy. Cardio: Normal Rate and Rhythm with S1 and S2 heart sounds. No murmurs or extra heart sounds auscultated. Peripheral edema 2+. Lungs: Symmetric with good expansion. Chest and back non-tender. Breath sounds vesicular without crackles, wheezing or rhonchi Abdomen: Non-tender, Non-distended, Normal Reactive Bowel Sounds Neuro: Alert, cooperative, oriented to person, place, and time. Speech clear. CN grossly intact. Upper motor strength 5/5 and Lower motor strength 5/5. Sensation intact. Routine Extremities Exam Extremities: Present pulses intact Objective Labs 01/19/25 04:25 01/19/25 04:25 Labs: Laboratory Results - last 24 hr 01/18/25 05:05 WBC 8.9 RBC 3.92 L Hgb 12.3 L Hct 37.6 L MCV 96 MCH 31.4 MCHC 32.7 RDW Std Deviation 54.0 H Plt Count 173 D Neut % (Auto) 69 Lymph % (Auto) 23 [place] % (Auto) 7 Eos % (Auto) 1 Baso % (Auto) 0 Neut # (Auto) 6.1 Lymph # (Auto) 2.0 [place] # (Auto) 0.7 Eos # (Auto) 0.1 Baso # (Auto) 0.0 Immature Gran # (Auto) 0.01 H Absolute Nucleated RBC 0.00 Immature Gran % 0 Nucleated RBC % 0 Sodium 141 Potassium 3.7 D Chloride 106 Carbon Dioxide 29.6 Anion Gap 5 L BUN < 5 L Creatinine 0.7 Estim Creat Clear Calc 79.2 eGFR > 60 BUN/Creatinine Ratio 7 L Glucose [address] Glu mg/dL 318 H Hemoglobin A1c 12.7 H Calculated Osmolality 275 Calcium 8.7 Corrected Calcium 8.9 Phosphorus 4.6 Magnesium 1.7 Total Bilirubin 0.5 AST 40 H ALT 40 Alkaline Phosphatase 106 Total Protein 6.1 Albumin 3.7 Globulin 2.4 Albumin/Globulin Ratio 1.5 Triglycerides 75 Cholesterol 158 LDL Cholesterol, Calc 73 HDL Cholesterol 70 H Cholesterol/HDL Ratio 2.3 L TSH 5.37 H Free T4 1.29 Quality Measures Quality Measures none Advance care planning discussed with:: patient Assessment & Plan Assessment Current Active Medications: Generic Name Dose Route Start Last Admin Trade Name Freq PRN Reason Stop Dose Admin Acetaminophen 650 mg 01/17/25 20:55 Acetaminophen 325 Mg Tablet PO 02/16/25 20:54 Q6H PRN Pain 1-3 and/or Fever >100.1 Atorvastatin Calcium 40 mg 01/18/25 21:00 Atorvastatin Calcium 20 Mg Tablet PO 02/17/25 20:59 HS TINO Dextrose 25 ml 01/17/25 23:20 Dextrose 50%-Water Inj 50 Ml Syringe IV 02/16/25 23:19 Q15MIN PRN BG 50-70 responsive npo pt Dextrose 50 ml 01/17/25 23:20 Dextrose 50%-Water Inj 50 Ml Syringe IV 02/16/25 23:19 Q15MIN PRN BG <50 OR BG <70 & pt unresponsive Furosemide 40 mg 01/18/25 06:00 01/18/25 05:26 Furosemide Inj 10 Mg/Ml 4ml Vial IVP 02/17/25 05:59 40 mg BIDD TINO Administration Glucagon 1 mg 01/17/25 23:20 Glucagon Inj 1 Mg Vial IM Q15MIN PRN BG <70, and no IV access Heparin Sodium (Porcine) 5,000 unit 01/17/25 21:00 07/03/25 09:41 Heparin Sod Inj 5000 Unit/Ml Vial SC 01/31/25 20:59 5,000 unit Q12HR TINO Administration Ceftriaxone Sodium/Dextrose 1 gm in 50 mls @ 100 mls/hr 01/17/25 23:27 01/18/25 09:39 Rocephin/D5w 1gm Iv Premix IV 01/24/25 23:26 100 mls/hr QDAY TINO Administration Azithromycin 500 mg/ Sodium 250 mls @ 250 mls/hr 01/18/25 10:21 01/18/25 11:03 Chloride IV 01/25/25 10:20 250 mls/hr QDAY TINO Administration Insulin Glargine 5 unit 01/18/25 21:00 Insulin Glargine (Lantus) 5 Unit/0.05 Ml (Per 5 Units) SC 02/17/25 20:59 HS TINO Insulin Human Lispro 0 unit 01/18/25 07:30 01/18/25 08:13 Insulin Lispro (Admelog) 1 Unit/0.01 Ml Unit SC 02/17/25 07:29 2 unit ACHS TINO Administration Protocol Ondansetron HCl 4 mg 01/17/25 20:55 Ondansetron Inj 2 Mg/Ml Inj 2 Ml IVP 02/16/25 20:54 Q6H PRN NAUSEA OR VOMITING Protocol Sennosides 1 tab 01/17/25 20:55 Senna Tablet PO 02/16/25 20:54 QDAY PRN constipation Protocol Plan Plan Patient is a 74 year old male with PMHx of HTN, HLD, poorly controlled type 2 diabetes mellitus, non insulin dependent, and sick sinus s/p pacemaker who originally presented to the ED with edema of bilateral upper and lower extremeties and dyspnea. Patient was admitted overnight for acute CHF exacerbation. #Acute Congestive Heart Failure #history of Preserved Ejection 50 to 55% (2019) #Hyperlipidemia #S/P Pacemaker placement Patient presenting with symptomatic dyspnea, dyspnea upon exertion, and worsening upper and lower extremity swelling. Acute congestive heart failure likely triggered by possible pneumonia as noted on chest x-ray. No previous diagnosis of CHF on file. Consider ischemic vs congetive cardiomyopathy. TSH elevated but Free T 4 within limits. This is a known patient of Dr. Valdez following in outpatient setting. BNP 760 TSAH 5.37, Free T4 1.29 Echo (09/09/2018) Normal cardiac chamber size with normal LV systolic function and LVEF 50 to 55 % Mild tricuspid regurgitation Trace mitral regurgitartion Decreased LV diastolic compliance ASCVD: 37.4% Risk of Cardiovascular event in next 10 years, high intensity statins recommended [facility]: III Plan: Lasix 40 mg IV BID -->Lasix 40 mg IV Qday Pending Echo Continue aggressive diuressis Repeat BNP prior to discharge Ho[place] K> and Magnesium >2 Strict I's and O's ; Daily Fluid restriction 1800mL Sodium 2g day per cardiology work towards guideline GDMT Cardiology Consulted, appreciate recommendations, Dr. Valdez #Superimposed community-acquired pneumonia Chest x-ray showed mild to moderate CHF with enlarged cardiac contour and likely superimposed pneumonia in the lung bases, EKG showed atrial pacemaker, ventricular pacemaker. Venous Doppler studies were ordered which showed no signs of DVT. Plan: Continue IV ceftriaxone 1 g daily (01/18/2025--01/23/2025) Started Azithromycin 500mg IV daily (01/19/2025-01/24/2025) Monitor with morning labs Patient does not appear septic at this time, continue monitor for any acute changes #Hypertension Home medication of amlodipine given soft blood pressure with lasixs. Continue to hold [place] and Amlodipine. Plan -Holding home medication #Gti-vulvxaa-ccjrzsgtv type 2 diabetes Patient presented with hyperglycemic episodes that have also varied to hyperglycemia during this admission. Continue to monitor Fasting glucose. A1c 12.7 and Average 318 Plan -Glargine 5 units, hold if fasting glucose <100. -Sliding Scale -Hypoglycemic #Elevated liver enzymes Differentials include NAFLD congestion secondary CHF versus less likely to be alcohol associated hepatitis, viral hepatitis Plan: Continue monitor with morning labs Health Maintenance: Lines: PIV Diet: Cardiac Bowel: Senna GI prophylaxis: Not needed DVT prophylaxis: Heparin subcu Dispo: IV diuretics per CHF exacerbation, cardiac workup Code: Full Patient discussed your Dr. Davalos, attending and senior resident Dr. Alley Jefferson Medical Student, MS-4 Patient seen and examined with attending physician, Dr. Davalos. Kaela Hager MD PGY-2 Internal Medicine Attending Provider Attestation/Addendum 74-year-old male with multiple comorbidities including hypertension, hyperlipidemia, type 2 diabetes mellitus and sick sinus syndrome status post pacemaker placement who presented to the ER on 01/17/2025 with increased shortness of breath and found to have diffuse crackles concerning for new onset CHF exacerbation. During course of hospitalization, patient started on IV diuretic therapy and IV antibiotic for possible superimposed community-acquired pneumonia. Currently, patient appears to be improving and plan to continue IV diuretic therapy and anticipate discharge in the next 24 hours.I reviewed above note and agree with findings and plans. I have also personally examined the patient with medicine team and went over assessment and plan with medical team including internal controls manager and resident physician.
--- NOTE | 2025-01-18 13:42 | PD.RESPRO ---
Documentation for date of: 01/18/25 Exam Vital Signs Temp Pulse Resp BP Pulse Ox O2 Del Method O2 Flow Rate 97.3 F 73 19 140/72 H 98 Nasal Cannula 1 01/18/25 12:00 01/18/25 12:00 01/18/25 12:00 01/18/25 12:00 01/18/25 12:00 01/18/25 08:00 01/18/25 08:00 Objective Labs 01/18/25 05:05 01/18/25 05:05 Labs: Laboratory Results - last 24 hr 01/18/25 05:05 WBC 8.9 RBC 3.92 L Hgb 12.3 L Hct 37.6 L MCV 96 MCH 31.4 MCHC 32.7 RDW Std Deviation 54.0 H Plt Count 173 D Neut % (Auto) 69 Lymph % (Auto) 23 [place] % (Auto) 7 Eos % (Auto) 1 Baso % (Auto) 0 Neut # (Auto) 6.1 Lymph # (Auto) 2.0 [place] # (Auto) 0.7 Eos # (Auto) 0.1 Baso # (Auto) 0.0 Immature Gran # (Auto) 0.01 H Absolute Nucleated RBC 0.00 Immature Gran % 0 Nucleated RBC % 0 Sodium 141 Potassium 3.7 D Chloride 106 Carbon Dioxide 29.6 Anion Gap 5 L BUN < 5 L Creatinine 0.7 Estim Creat Clear Calc 79.2 eGFR > 60 BUN/Creatinine Ratio 7 L Glucose [address] Glu mg/dL 318 H Hemoglobin A1c 12.7 H Calculated Osmolality 275 Calcium 8.7 Corrected Calcium 8.9 Phosphorus 4.6 Magnesium 1.7 Total Bilirubin 0.5 AST 40 H ALT 40 Alkaline Phosphatase 106 Total Protein 6.1 Albumin 3.7 Globulin 2.4 Albumin/Globulin Ratio 1.5 Triglycerides 75 Cholesterol 158 LDL Cholesterol, Calc 73 HDL Cholesterol 70 H Cholesterol/HDL Ratio 2.3 L TSH 5.37 H Free T4 1.29 Quality Measures Quality Measures none Assessment & Plan Assessment Current Active Medications: Generic Name Dose Route Start Last Admin Trade Name Freq PRN Reason Stop Dose Admin Acetaminophen 650 mg 01/17/25 20:55 Acetaminophen 325 Mg Tablet PO 02/16/25 20:54 Q6H PRN Pain 1-3 and/or Fever >100.1 Atorvastatin Calcium 40 mg 01/18/25 21:00 Atorvastatin Calcium 20 Mg Tablet PO 02/17/25 20:59 HS TINO Dextrose 25 ml 01/17/25 23:20 Dextrose 50%-Water Inj 50 Ml Syringe IV 02/16/25 23:19 Q15MIN PRN BG 50-70 responsive npo pt Dextrose 50 ml 01/17/25 23:20 Dextrose 50%-Water Inj 50 Ml Syringe IV 02/16/25 23:19 Q15MIN PRN BG <50 OR BG <70 & pt unresponsive Furosemide 40 mg 01/18/25 06:00 01/18/25 05:26 Furosemide Inj 10 Mg/Ml 4ml Vial IVP 02/17/25 05:59 40 mg BIDD TINO Administration Glucagon 1 mg 01/17/25 23:20 Glucagon Inj 1 Mg Vial IM Q15MIN PRN BG <70, and no IV access Heparin Sodium (Porcine) 5,000 unit 01/17/25 21:00 01/18/25 09:41 Heparin Sod Inj 5000 Unit/Ml Vial SC 01/31/25 20:59 5,000 unit Q12HR TINO Administration Ceftriaxone Sodium/Dextrose 1 gm in 50 mls @ 100 mls/hr 01/17/25 23:27 01/18/25 09:39 Rocephin/D5w 1gm Iv Premix IV 01/24/25 23:26 100 mls/hr QDAY TINO Administration Azithromycin 500 mg/ Sodium 250 mls @ 250 mls/hr 01/18/25 10:21 01/18/25 11:03 Chloride IV 01/25/25 10:20 250 mls/hr QDAY TINO Administration Insulin Glargine 5 unit 01/18/25 21:00 Insulin Glargine (Lantus) 5 Unit/0.05 Ml (Per 5 Units) SC 02/17/25 20:59 HS [facility] Insulin Human Lispro 0 unit 01/18/25 07:30 01/18/25 13:27 Insulin Lispro (Admelog) 1 Unit/0.01 Ml Unit SC 02/17/25 07:29 Not Given ACHS [facility] Protocol Ondansetron HCl 4 mg 01/17/25 20:55 Ondansetron Inj 2 Mg/Ml Inj 2 Ml IVP 02/16/25 20:54 Q6H PRN NAUSEA OR VOMITING Protocol Sennosides 1 tab 01/17/25 20:55 Senna Tablet PO 02/16/25 20:54 QDAY PRN constipation Protocol
--- NOTE | 2025-01-18 15:14 | ESCONSULT_ITS ---
<Statement entered by Racheal Valdez MD - 01/20/25 18:37> I personally examined and evaluated this patient who came to the hospital with heart failure symptoms classic signs and symptoms of congestive heart failure evaluated patient with resident physician Dr. Lea Maxwell agree with the treatment plan recommendation as documented patient has pacemaker implantation will get a cardiac echo to assess LV function. HPI Data of Consult Requesting Physician: Ji Don MD Admitting Provider: Ji Don MD Attending Provider: Ji Don MD Primary Care Provider: Taylor Neil MD Consult Narrative History of present illness: Mr. Merlos is a 74-year-old peruvian speaking male with past medical history of hypertension, hyperlipidemia, gxc-jkqwtew-askbeyygh type 2 diabetes, HFpEF (50 to 55%) Bradycardia s/p pacemaker in [address] Valdez presented to the ED on 01/17/25 complaining of worsening shortness of breath and lower extremity edema. Pt states since the placement of his pacemaker, he has been regularly following up with a ball racker in [place] which he cannot recall name of. Pt states he never has any cardiac issues including SOB, chest pain, palpitation of chest pressure untill on the 16 of january he noticed swelling of his left arm and and pain at the site of pacemaker. Pt also complains of worsening SOB and LE edema he noted yesterday which prompted him to come to the ED. Pt denies any dizness or syncopal episodes. Pt denies orthopnea and PND. Cardiology is consulted for acute decompensated heart failure PMH: Hypertension, hyperlipidemia, mxf-lcwubck-iwalhvnnd type 2 diabetes, bradycardia status post pacemaker, HFpEF (50 to 55%) PSH: Pacemaker placement SH: Denies alcohol use, tobacco use or illicit drugs. Patient lives with and does not have any children Home meds: Amlodipine 5 mg daily, atorvastatin 20 mg daily, Jardiance 25 mg daily, losartan 25 mg daily, Janumet 50-1,1000 twice daily cc:: cc: Ji Don MD Review of Systems Review of Systems Systems Reviewed: All systems reviewed, normal except as documented Exam Vital Signs Temp Pulse Resp BP Pulse Ox O2 Del Method O2 Flow Rate 97.3 F 73 19 140/72 H 98 Nasal Cannula 1 01/18/25 12:00 01/18/25 12:00 01/18/25 12:00 01/18/25 12:00 01/18/25 12:00 01/18/25 08:00 01/18/25 08:00 Narrative Exam GENERAL: A&Ox3, Awake, Not in acute distress NEURO: no focal neurological deficits HEENT: Atraumatic, Normocephalic. mucous membranes moist. Eyes open, symmetrical, & clear HEART: Normal Heart Sounds, pacemaker noted on left side of chest LUNGS: Clear to auscultation with no wheezing or crackles. ABDOMEN: soft, non-distended, non-tender, bowel sounds heard, no guarding or rebound tenderness SKIN: No Rash or ecchymoses EXTREMITIES: No edema, tenderness, able to move all 4 extremities, pedal pulses palpated Results Labs 01/18/25 05:05 01/18/25 05:05 Labs: Short CBC 01/18/25 Range/Units 05:05 WBC 8.9 (3.8-10.6) Thou/mm3 Hgb 12.3 L (13.5-16.0) g/dL Hct 37.6 L (41.0-53.0) % Plt Count 173 D (140-440) Thou/mm3 BMP 01/18/25 05:05 Sodium 141 Potassium 3.7 D Chloride 106 Carbon Dioxide 29.6 BUN < 5 L Creatinine 0.7 Glucose 52 L Calcium 8.7 Liver Function 01/18/25 Range/Units 05:05 Total Bilirubin 0.5 (0.3-1.2) mg/dL AST 40 H (0-34) U/L ALT 40 (10-49) U/L Alkaline Phosphatase 106 (46-116) U/L Albumin 3.7 (3.4-4.8) gm/dL Quality Measures Quality Measures none Advance care planning discussed with:: patient and spouse Medications Home Medications and Allergies Home Medications ?Medication ?Instructions ?Recorded ?Confirmed ?Type atorvastatin 20 mg tablet 20 mg PO QDAY 09/08/1801/18 History amlodipine 5 mg tablet 5 mg PO QAM 10/13/21 5 History empagliflozin 25 mg tablet 25 mg PO QDAY 10/13/2110/10 History (Jardiance) losartan 25 mg tablet 25 mg PO QDAY 10/13/2101/18 History sitagliptin phosphate 50 1 tab PO BID 10/13/21 History mg-metformin 1,000 mg tablet (Janumet) Allergies Allergy/AdvReac Type Severity Reaction Status Date / Time No Known Allergies Allergy Verified 01/17/25 07:35 Visit Medications Acetaminophen (Acetaminophen 325 Mg Tablet) 650 mg PO Q6H PRN PRN Reason: Pain 1-3 and/or Fever >100.1 Stop: 02/16/25 20:54 Atorvastatin Calcium (Atorvastatin Calcium 20 Mg Tablet) 40 mg PO HS TINO Stop: 02/17/25 20:59 Dextrose (Dextrose 50%-Water Inj 50 Ml Syringe) 25 ml IV Q15MIN PRN PRN Reason: BG 50-70 responsive npo pt Stop: 02/16/25 23:19 Dextrose (Dextrose 50%-Water Inj 50 Ml Syringe) 50 ml IV Q15MIN PRN PRN Reason: BG <50 OR BG <70 & pt unresponsive Stop: 02/16/25 23:19 Furosemide (Furosemide Inj 10 Mg/Ml 4ml Vial) 40 mg IVP BIDD TINO Stop: 02/17/25 05:59 Last Admin: 01/18/25 05:26 Dose: 40 mg Glucagon (Glucagon Inj 1 Mg Vial) 1 mg IM Q15MIN PRN PRN Reason: BG <70, and no IV access Heparin Sodium (Porcine) (Heparin Sod Inj 5000 Unit/Ml Vial) 5,000 unit SC Q12HR TINO Stop: 01/31/25 20:59 Last Admin: 01/18/25 09:41 Dose: 5,000 unit Ceftriaxone Sodium/Dextrose (Rocephin/D5w 1gm Iv Premix) 1 gm in 50 mls @ 100 mls/hr IV QDAY TINO Stop: 01/24/25 23:26 Last Admin: 01/18/25 09:39 Dose: 100 mls/hr Azithromycin 500 mg/ Sodium (Chloride) 250 mls @ 250 mls/hr IV QDAY [facility] Stop: 01/25/25 10:20 Last Admin: 01/18/25 11:03 Dose: 250 mls/hr Insulin Glargine (Insulin Glargine (Lantus) 5 Unit/0.05 Ml (Per 5 Units)) 5 unit SC HS [facility] Stop: 02/17/25 20:59 Insulin Human Lispro (Insulin Lispro (Admelog) 1 Unit/0.01 Ml Unit) 0 unit SC ACHS TINO; Protocol Stop: 02/17/25 07:29 Last Admin: 01/18/25 13:27 Dose: Not Given Ondansetron HCl (Ondansetron Inj 2 Mg/Ml Inj 2 Ml) 4 mg IVP Q6H PRN; Protocol PRN Reason: NAUSEA OR VOMITING Stop: 02/16/25 20:54 Sennosides (Senna Tablet) 1 tab PO QDAY PRN; Protocol PRN Reason: constipation Stop: 02/16/25 20:54 Discontinued Medications Albuterol/Ipratropium (Albuterol/Ipratropium (Duoneb) Rt Lola 3 Ml Nebu) 3 ml INH X1 ONE Stop: 01/17/25 13:36 Last Admin: 01/17/25 13:47 Dose: 3 ml Dextrose (Dextrose 50%-Water Inj 50 Ml Syringe) 50 ml IVP X1 ONE Stop: 01/17/25 18:34 Last Admin: 01/17/25 18:30 Dose: 50 ml Furosemide (Furosemide 40 Mg Tablet) 40 mg PO X1 ONE Stop: 01/17/25 13:36 Last Admin: 01/17/25 13:47 Dose: 40 mg Assessment & Plan Plan Mr. Merlos is a 74-year-old peruvian speaking male with past medical history of hypertension, hyperlipidemia, ksr-aqennpu-zhlyfklxy type 2 diabetes, HFpEF (50 to 55%) Bradycardia s/p pacemaker in [address] Valdez presented to the ED on 01/17/25 complaining of worsening shortness of breath and lower extremity edema. Pt is admitted to telemetry for management of acute decompensated heart failure. #Acute decompensated heart failure #HFpEF (50 to 55% in 2019) #Bradycardia s/p pacemaker -On admission Pt presented with worsening shortness of breath and LE edema -BNP 760 -CXR: Moderate CHF, Mild enlargement cardiac contour. Prominent vascular congestion with perihilar basilar edema. -EKG: shows paced rhythm -Pt has pacemaker placed due to symptomatic bradycardia in 2022 -NYHA functional classification ll Plan: -Continue IV lasix 40mg BID -Strict I's and O's -Daily weights -Echo pending -Sodium restriction to 2g #Primary hypertension #Hyperlipidemia Continue home amlodipine and atorvastatin #Ohp-iwqgcrj-lzpgqtmgh type 2 diabetes #Elevated liver enzymes - Continue management as per primary hospitalist team Assessment and plan discussed with my attending physician Dr. José Miguel Maxwell (PGY-2)- Internal medicine resident
[2025-01-18] MEDS: ACETAMINOPHEN 325 MG TABLET 650 MG PO (21:51)
[2025-01-18] MEDS: ATORVASTATIN CALCIUM 20 MG TABLET 40 MG PO (21:51)
[2025-01-18] MEDS: INSULIN GLARGINE (Lantus) 5 UNIT/0.05 ML (PER 5 UNITS) SC (21:53)
[2025-01-19] VITALS: BP 114/60; PULSE 66; PULSE 79; RESP 12; TEMP 36.6; O2SAT 100
[2025-01-19 04:00] VITALS: BP 135/84; PULSE 66; RESP 18; TEMP 36.6; O2SAT 100
[2025-01-19 06:00] VITALS: BMI 29.0
[2025-01-19 06:42] LABS: Basophils # (Auto) 0.0 Thou/mm3 (0.0-0.2); Basophils % (Auto) 1 % (0-2.5); Eosinophils # (Auto) 0.1 Thou/mm3 (0.0-0.5); Eosinophils % (Auto) 3 % (0-10); Hematocrit 42.0 % (41.0-53.0); Hemoglobin 13.6 g/dL (13.5-16.0); Immature Granulocytes Auto 0.01 Thou/mm3 (0.00-0.00); Lymphocytes # (Auto) 1.7 Thou/mm3 (1.0-4.8); Lymphocytes % (Auto) 30 % (10-50); Mean Corpuscular HGB Conc 32.4 g/dl (31.0-37.0); Mean Corpuscular Hemoglobin 31.4 pg (25.0-35.0); Mean Corpuscular Volume 97 fL (80-100); Monocytes # (Auto) 0.6 Thou/mm3 (0.0-0.8); Monocytes % (Auto) 11 % (0-12); Neutrophils # (Auto) 3.1 Thou/mm3 (1.8-7.7); Neutrophils % (Auto) 56 % (37-80); Nucleated Red Blood Cell # 0.00 Thou/mm3 (0.00-0.00); Nucleated Red Blood Cell % 0 /100 WBC (0); Platelet Count 190 Thou/mm3 (140-440); RDW Standard Deviation 54.2 fL (35.1-43.9); Red Blood Count 4.33 Miln/mm3 (4.50-5.90); White Blood Count 5.5 Thou/mm3 (3.8-10.6)
[2025-01-19 06:53] LABS: Alanine Aminotransferase 32 U/L (10-49); Albumin, Serum 3.9 gm/dL (3.4-4.8); Albumin/Globulin Ratio 1.6 (1.2-2.2); Alkaline Phosphatase 107 U/L (46-116); Anion Gap 8 (7-16); Aspartate Amino Transferase 29 U/L (0-34); BUN/Creatinine Ratio 15 Ratio (12-20); Bilirubin,Total 0.5 mg/dL (0.3-1.2); Blood Urea Nitrogen 15 mg/dL (9-23); Calcium 9.2 mg/dL (8.3-10.6); Calcium (Corrected) 9.3 mg/dL (8.5-10.1); Carbon Dioxide 29.1 mMol/L (20.0-31.0); Chloride 105 mMol/L (98-107); Creatinine (Component) 1.0 mg/dL (0.6-1.3); Estimated Creatinine Clearance 54.1 mL/min (>60); Globulin 2.5 gm/dL (2.3-3.5); Glucose 94 mg/dL (74-106); Magnesium 1.9 mg/dL (1.6-2.6); Osmolality,Calculated 283 (275-295); Phosphorous 3.7 mg/dL (2.4-5.1); Potassium 4.9 mMol/L (3.4-5.1); Sodium 142 mMol/L (136-145); Total Protein 6.4 gm/dL (5.7-8.2); eGFR > 60 See Note
[2025-01-19 08:00] VITALS: BP 158/85; PULSE 65; PULSE 68; RESP 15; TEMP 36.4; O2SAT 97
[2025-01-19] MEDS: cefTRIAXone/D5w 1gm IV premix 1 GM/50 ML BAG IV (08:48)
[2025-01-19] MEDS: HEPARIN SOD INJ 5000 UNIT/ML VIAL SC (08:48)
[2025-01-19 08:49] VITALS: BP 158/85; PULSE 65
[2025-01-19] MEDS: FUROSEMIDE INJ 10 MG/ML 4ML VIAL 40 MG IVP (08:49)
[2025-01-19] MEDS: POLYETHYLENE GLYCOL 17 GM PACKET PO (08:49)
[2025-01-19] MEDS: AZITHROMYCIN INJ 500 MG in SODIUM CHLORIDE 0.9% 250 ML 250 ML 250 MG IV (09:24)
[2025-01-19 09:32] LABS: B-Type Natriuretic Peptide 346 pg/mL (0-100)
[2025-01-19 12:00] VITALS: BP 150/82; PULSE 68; PULSE 69; RESP 18; TEMP 36; O2SAT 98
[2025-01-19] MEDS: INSULIN LISPRO (AdmeLOG) 1 UNIT/0.01 ML UNIT SC (12:00)
--- NOTE | 2025-01-19 12:27 | ESDS_ITS ---
<Statement entered by Damon Davalos MD - 01/25/25 14:55> I reviewed above note and agree with findings and plans. I have also personally examined the patient with medicine team and went over assessment and plan with medical team including director internal communications and resident physician. Planned Discharge Date 01/19/25 DS: Providers Provider Date of admission: 01/17/25 20:06 Primary care physician: Taylor Neil MD Admitting Provider: Ji Don MD Attending Provider on Admission: Ji Don MD Consults: 01/17/25 20:00 Consult to Cardiology Stat Comment: Consulting Provider: Racheal Valdez Attending Provider on DC: Valdemar Ferguson Discharging Provider: Valdemar Ferguson Anticipated date of discharge: 01/19/25 DS: Diagnosis Problem List Completed Was Problem List Reviewed/Reconciled?: Yes Hospital Course Hospital Course Hospital course: Summary: Patient is a 74 year old male patient a PMHx of HLD, HTN, poorly controlled non- insulin type II diabetes, CHF HFrEF 40% (pending official report). and bradycardia s/p pacemaker who originally presented to the ED on 01/17 with a one day history of bilateral upper and lower extremity edema and dyspnea on exertion who was an overnight admit for acute CHF exacerbation. Please follow up with your cardiac provider as outpatient and obtain official reports for updated echo from hospital stay. ED Course: Patient presented to the ED with bilateral upper and lower extremity edema and dyspnea on exertion. Patient noted worsening shortness of breath over the past month. Patient denied chest pain and palpitations. Patient denied any previous similar episodes. CXR demonstrated cardiac silhouette enlargement and bilateral vascular congestion. US of ULE demonstrated normal findins. EKG demonstrated normal paced rhythm. Pertinent lab findings include BNP 760, AST 57, and glucose 62. Patient was given 240 mL for a hypoglycemic episode where glucose was measured at 37. Bedside consult completed by Dr. Valdez recommended admission for echo, ischemic work-up, and administration of Lasix 40 mg IV BID. Hospital Course: Patient was an overnight admit 01/17 for acute CHF exacerbation. Patient is status post echo completed 01/[address] Valdez; contacted cardiology and pending results. Patient endorsed improving shortness of breath. Patient continued to deny chest pain. Patient's Lasix 40 mg IV BID was decreased to 40 mg IVP QD. Patient continued to demonstrate net negative fluid balance. Patient was discontinued on Amlodipine 5 mg PO QAM. Patient was started on Lasix 20 mg PO QAM and Losartan 25 mg PO QD for heart failure. Patient was started on ceftriaxone 1 img IV QD and azithromycin 500 mg IV QD for superimposed community acquired pneumonia. Patient will resume home medications upon discharge, including Lantis 30 units daily. Pertinent labs include BNP 346, AST 29, and glucose of 94 at discharge. Patient is stable and at baseline. Instructions: Please start Lasix 20 mg orally once daily and Losartan 25 mg once daily Please take Atorvastatin for cholesterol please monitor weight and limit salt intake to 2 grams per day -Please follow up with your primary care provider within one week of discharge -If your symptoms worsen,please seek immediate medical attention and return to your nearest emergency room -If you do not have a primary care provider, you may follow up at the [facility] at [address] [place] [address] [address], [place] [address], #Acute Congestive Heart Failure #history of Preserved Ejection 50 to 55% (2019) now likely 40% (pending official report) #Hyperlipidemia #S/P Pacemaker placement #Superimposed community-acquired pneumonia #Hypertension #Kaf-pbbrcko-hpgzotpxr type 2 diabetes #Elevated liver enzymes Case was discussed with attending physician Dr. Davalos and resident Dr. Hager - The patient's plan was discussed with attending Dr. Anoop Hager MD PGY2 Internal Medicine Status at Discharge Cognitive/behavioral status at discharge: Patient is AO x4 Time Spent with Patient Time attestation: Total time spent providing and/or coordinating discharge services: at least 30 minutes of care and coordination Time spent: Greater than 30 minutes Exam Vital Signs Temp Pulse Resp BP Pulse Ox O2 Del Method O2 Flow Rate 97.5 F 65 15 158/85 H 97 Room Air 1 01/19/25 08:00 01/19/25 08:49 01/19/25 08:00 01/19/25 08:49 01/19/25 08:00 01/19/25 08:00 01/19/25 04:00 Narrative Exam General Appearance: Alert & Oriented X3, well-nourished male who is lying in bed in no acute distress. HEENT: Skull symmetrical and atraumatic. Conjunctivae pink and moist. Pupils equal, round, reactive to light and accommodation (PERRL). External ear without lesion or discharge. Straight, nares patient, mucosa pink, no discharge. No thyroid nodule appreciated. No cervical lymphadenopathy. Cardio: Normal Rate and Rhythm with S1 and S2 heart sounds. No murmurs or extra heart sounds auscultated. No bruits on carotid auscultation. No peripheral edema or cyanosis. Lungs: Symmetric with good expansion. Chest and back non-tender. Breath sounds vesicular without crackles, wheezing or rhonchi Abdomen: Non-tender, Non-distended, Normal Reactive Bowel Sounds Neuro: Alert, cooperative, oriented to person, place, and time. Speech clear. CN grossly intact. Upper motor strength 5/5 and Lower motor strength 5/5. Sensation intact. Discharge Plan Plan Patient Disposition: HOME (Self Care) Patient condition on transfer: Stable Care Plan Goals: Instructions: -Please start Lasix 20 mg orally once daily and Losartan 25 mg once daily -Please take Atorvastatin for cholesterol -please monitor weight and limit salt intake to 2 grams per day -Please follow up with your primary care provider within one week of discharge -If your symptoms worsen,please seek immediate medical attention and return to your nearest emergency room -If you do not have a primary care provider, you may follow up at the [facility] [address], [place] [address], Prescriptions/Referrals Prescriptions/Med Rec: New atorvastatin 20 mg Tablet 40 mg PO HS 30 Days Qty: 60 0RF furosemide [Lasix] 20 mg tablet 20 mg PO QAM 30 Days Qty: 30 1RF losartan 25 mg tablet 25 mg PO QDAY 30 Days Qty: 30 0RF (DME) FreeStyle Camila 3 Plus Sensor Device See Rx Instructions .Route Qty: 3 1RF Rx Instructions: As directed (DME) FreeStyle Camila 3 [place] Misc See Rx Instructions .Route Qty: 2 1RF Rx Instructions: As directed Continued Janumet 50-1,000 mg Tablet 1 tab PO BID Jardiance 25 mg Tablet 25 mg PO QDAY Discontinued atorvastatin 20 mg Tablet 20 mg PO QDAY amlodipine 5 mg Tablet 5 mg PO QAM losartan 25 mg Tablet 25 mg PO QDAY Referrals: Taylor Neil MD [Primary Care Provider] - Racheal Valdez MD [Physician] - Patient/Caregiver Discharge Instructions Meds to Beds: No Discharge Activity: as per physical therapy Education Materials: Heart Failure: Being Active, Healthy Meals for Diabetes, Exercise to Manage Your Blood Sugar, Coping with Heart Failure, How Diabetes Can Affect ... Print Language: Citizen Of [place] Stand Alone Forms: Park Award Info., Patient Portal Info Letter Discharge Order Discharge Orders: Discharge (Routine); Ordered 01/19/25 Ordered By: Kaela Hager Quality Discharge Quality Measures none MD Attestestation MD Attestation I have discussed and was present for the essential components of the history, physical examination, diagnosis, and treatment plan with the resident. I agree with the patient's care as documented by the resident and amended herein by me. Damon Davalos MD. Although this document has been carefully reviewed, there may still be some phonetic and other typographical errors. These errors are purely grammatical due to imperfections in the software program and should not be construed in any way to compromise the substance of the patient's medical care during this visit.
[2025-01-19 13:59] VITALS: BP 147/75; PULSE 71; RESP 16; TEMP 35.8; O2SAT 96
--- NOTE | 2025-01-19 19:17 | ESPR_ITS ---
<Statement entered by Racheal Valdez MD - 01/20/25 18:55> Patient is examined by me with the PGY 2 physician patient continues to improve over the last 24 hours and shortness with improved significantly can be discharged home to outpatient follow-up with his regular water analyst. Documentation for date of: 01/19/25 Subjective Subjective Interval history: Pt is seen at bedside this morning. saturating on room air. significant imporvement of his symtoms. denies SOB and LE edema has resolved. BP is 150/82, HR 71. Echo is read today by Dr. Valdez and EF is approximately 40%. Pt may continue current management. and will need close follow up with his water analyst in [place]. Otherwise pt is stable and no cardiac complaints at this time. Exam Vital Signs Temp Pulse Resp BP Pulse Ox O2 Del Method O2 Flow Rate 96.5 F L 71 16 147/75 H 96 Room Air 1 01/19/25 13:59 01/19/25 13:59 01/19/25 13:59 01/19/25 13:59 01/19/25 13:59 01/19/25 13:59 01/19/25 04:00 Narrative Exam GENERAL: A&Ox3, Awake, Not in acute distress NEURO: no focal neurological deficits HEENT: Atraumatic, Normocephalic. mucous membranes moist. Eyes open, symmetrical, & clear HEART: Normal Heart Sounds, pacemaker noted on left side of chest LUNGS: Clear to auscultation with no wheezing or crackles. ABDOMEN: soft, non-distended, non-tender, bowel sounds heard, no guarding or rebound tenderness SKIN: No Rash or ecchymoses EXTREMITIES: No edema, tenderness, able to move all 4 extremities, pedal pulses palpated Objective Labs 01/19/25 04:25 01/19/25 04:25 Labs: Laboratory Results - last 24 hr 01/19/25 01/19/25 04:25 05:25 WBC 5.5 RBC 4.33 L Hgb 13.6 Hct 42.0 MCV 97 MCH 31.4 MCHC 32.4 RDW Std Deviation 54.2 H Plt Count 190 Neut % (Auto) 56 Lymph % (Auto) 30 [place] % (Auto) 11 Eos % (Auto) 3 Baso % (Auto) 1 Neut # (Auto) 3.1 Lymph # (Auto) 1.7 [place] # (Auto) 0.6 Eos # (Auto) 0.1 Baso # (Auto) 0.0 Immature Gran # (Auto) 0.01 H Absolute Nucleated RBC 0.00 Immature Gran % 0 Nucleated RBC % 0 Sodium 142 Potassium 4.9 D Chloride 105 Carbon Dioxide 29.1 Anion Gap 8 BUN 15 Creatinine 1.0 Estim Creat Clear Calc 54.1 L eGFR > 60 BUN/Creatinine Ratio 15 Glucose 94 D Calculated Osmolality 283 Calcium 9.2 Corrected Calcium 9.3 Phosphorus 3.7 Magnesium 1.9 Total Bilirubin 0.5 AST 29 ALT 32 Alkaline Phosphatase 107 B-Natriuretic Peptide 346 H Total Protein 6.4 Albumin 3.9 Globulin 2.5 Albumin/Globulin Ratio 1.6 Quality Measures Quality Measures none Advance care planning discussed with:: patient Assessment & Plan Plan Mr. Merlos is a 74-year-old romanian speaking male with past medical history of hypertension, hyperlipidemia, oqy-fkzrvry-uikxuovse type 2 diabetes, HFpEF (50 to 55%) Bradycardia s/p pacemaker in [address] Valdez presented to the ED on 01/17/25 complaining of worsening shortness of breath and lower extremity edema. Pt is admitted to telemetry for management of acute decompensated heart failure. #Acute decompensated heart failure #HFpEF (50 to 55% in 2019) #Bradycardia s/p pacemaker -On admission Pt presented with worsening shortness of breath and LE edema -BNP 760 -CXR: Moderate CHF, Mild enlargement cardiac contour. Prominent vascular congestion with perihilar basilar edema. -EKG: shows paced rhythm -Pt has pacemaker placed due to symptomatic bradycardia in 2022 -NYHA functional classification ll Plan: -Continue IV lasix 40mg BID and Jardiance -Strict I's and O's -Daily weights -Echo is completed on 01/19- EF 40% -Sodium restriction to 2g #Primary hypertension #Hyperlipidemia Continue home amlodipine and atorvastatin #Sxi-vvnhpvj-swepiursj type 2 diabetes #Elevated liver enzymes - Continue management as per primary hospitalist team Assessment and plan discussed with my attending physician Dr. José Miguel Maxwell (PGY-2)- Internal medicine resident
--- NOTE | 2025-01-22 15:29 | PC.CC ---
CGM prescribed at discharge, however, insulin not started therefore patient does not meet clinical criteria for CGM.
== END 2025-01-19 15:03 | disposition home or self-care (01) | DRG 194 ==
LOC: SERX 18:13 → SERHOLD 20:42 → S2NX 23:10
PROVIDERS: Nurse Practitioner Family; Admitting Provider Internal Medicine; Emergency Provider Emergency Medicine; PCP Obstetrics & Gynecology; Visit Provider Internal Medicine
DX: I11.0 Hypertensive heart disease with heart failure (principal); E78.5 Hyperlipidemia, unspecified; Z95.0 Presence of cardiac pacemaker; J18.9 Pneumonia, unspecified organism; R74.8 Abnormal levels of other serum enzymes; I50.33 Acute on chronic diastolic (congestive) heart failure; E11.65 Type 2 diabetes mellitus with hyperglycemia; E11.649 Type 2 diabetes mellitus with hypoglycemia without coma; I49.5 Sick sinus syndrome; Z79.4 Long term (current) use of insulin; Z79.84 Long term (current) use of oral hypoglycemic drugs
CPT/HCPCS: 36415; 71046; 80053; 80061; 81001; 83036; 83735; 83880; 84100; 84439; 84443; 84484; 85025; 85610; 85730; 87081; 87811; 93005; 93306; 93971; 94640; 94762; 96372; 96374; 99285; A9270; J0456; J0696; J1644; J1815; J1938; J7050